=== PATIENT | female | born 1970 | race African-American/Black ===

== ENCOUNTER 2018-03-31 20:38 | Emergency (ER) | payer SELFPAY ==
[~2018-03-31] VITALS: Ht 172.7 cm; Wt 96.7 kg
[2018-03-31 21:20] VITALS: BP 146/76; PULSE 97; RESP 20; Ht 172.7 cm; Wt 96.7 kg
== END 2018-04-01 07:20 | disposition left against medical advice (07) ==
LOC: FTE 20:38
DX: Z53.21 Procedure and treatment not carried out due to patient leaving prior to being seen by health care provider (principal)

== ENCOUNTER 2018-04-11 09:57 | Emergency (ER) | payer OTHER ==
[~2018-04-11] VITALS: Ht 170.2 cm; Wt 95.3 kg
[2018-04-11 10:05] VITALS: BP 170/98; PULSE 83; RESP 18; Ht 170.2 cm; Wt 95.3 kg
[2018-04-11] MEDS ORDERED: KETOROLAC 60 MG INJ IM STA (11:57)
[2018-04-11] MEDS ORDERED: DEXAMETHASONE 10 MG/ML 1 ML INJ IM ONE (12:00)
[2018-04-11] MEDS ORDERED: NAPR-985 PO (13:44)
[2018-04-11] MEDS ORDERED: MED4DP PO (13:44)
[2018-04-11] MEDS ORDERED: CYCL10TA7 PO (13:44)
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
== END 2018-04-11 13:56 | disposition home or self-care (01) ==
LOC: FTE 09:57
DX: M54.40 Lumbago with sciatica, unspecified side (principal); F17.210 Nicotine dependence, cigarettes, uncomplicated
CPT/HCPCS: 72040; 72100; 81025; 96372; J1100; J1885; Z7502

== ENCOUNTER 2018-07-28 18:43 | Emergency (ER) | payer OTHER ==
[~2018-07-28] VITALS: Ht 175.3 cm; Wt 99.6 kg
[~2018-07-28 18:43] MED LIST: CYCL10TA7 PO; MED4DP PO; NAPR-985 PO
[2018-07-28 19:00] VITALS: Ht 175.3 cm; Wt 99.6 kg
[2018-07-28] MEDS ORDERED: ONDANSETRON 4 MG INJ IV STA (19:38)
[2018-07-28] MEDS ORDERED: KETOROLAC 30 MG INJ IV STA (19:38)
[2018-07-28] MEDS ORDERED: IBUP-1542 PO (20:57)
[2018-07-28] MEDS ORDERED: ONDA4TAB14 PO (20:57)
--- NOTE | 2018-07-28 20:59 | ERD ---
ER Documentation Chief Complaint Chief Complaint fatigue w/ AP and nausea x2 weeks HPI Patient is a 48-year-old female with asthma who presents saying "I feel nauseated". The patient said that she has been feeling nausea for the past 2 weeks. She has no vomiting no diarrhea. She feels it all day long. She has had no treatment as of yet. She denies fevers. She feels more tired than usual. Upon review of old medical records this is the patient's third visit to the ER since March 2018. She goes to a clinic in [place]. ROS All systems reviewed and are negative except as per history of present illness. Medications Home Meds Active Scripts Ondansetron (Ondansetron Odt) 4 Mg Tab.rapdis, 4 MG PO Q6H PRN for NAUSEA AND/OR VOMITING, #10 TAB Prov:LONNIE MORRIS MD 07/28/18 Ibuprofen* (Motrin*) 600 Mg Tab, 600 MG PO Q6H PRN for PAIN AND OR ELEVATED TEMP, #30 TAB Prov:LONNIE MORRIS MD 07/28/18 Cyclobenzaprine Hcl* (Cyclobenzaprine Hcl*) 10 Mg Tablet, 10 MG PO TID, #15 TAB Prov:EJ NERI PA-C 04/11/18 Naproxen* (Naprosyn*) 500 Mg Tablet, 500 MG PO BID PRN for PAIN AND/OR INFLAMMATION, #30 TAB Prov:EJ NERI PA-C 04/11/18 Methylprednisolone* (Medrol* DOSE PACK) 4 Mg/Dose-Pack Tab.ds.pk, 4 MG PO . DIRECTED, #1 PACKET Prov:EJ NERI PA-C 04/11/18 Allergies Allergies: Coded Allergies: clarithromycin (Verified Allergy, Unknown, sob, 03/31/18) PMhx/Soc History of Surgery: Yes (TUBAL LIGATION 2007) Anesthesia Reaction: No Hx Neurological Disorder: No Hx Respiratory Disorders: No Hx Cardiac Disorders: No Hx Psychiatric Problems: Yes (DEPRESSION ) Hx Miscellaneous Medical Probl: No Hx Alcohol Use: No Hx Substance Use: No Hx Tobacco Use: Yes (2 PACKS A DAY) Smoking Status: Current every day smoker FmHx Family History: diabetes Physical Exam Vitals Vital Signs Date Temp Pulse Resp B/P (MAP) Pulse Ox O2 O2 Flow FiO2 Time Delivery Rate 07/28/18 69 18 121/88 99 Room Air 21:19 (99) 07/28/18 74 18 99/75 (83) 100 Room Air 19:37 07/28/18 98.2 94 16 141/101 100 19:00 (114) Physical Exam Const: No acute distress Head: Atraumatic Eyes: Normal Conjunctiva ENT: Normal External Ears, Nose and Mouth. Neck: Full range of motion. No meningismus. Resp: Clear to auscultation bilaterally Cardio: Regular rate and rhythm, no murmurs Abd: Soft, right upper quadrant tenderness to palpation without rebound or guarding Skin: No petechiae or rashes Back: No midline or flank tenderness Ext: No cyanosis, or edema Neur: Awake and alert Psych: Normal Mood and Affect Result Diagram: 07/28/18194507/28/181945 Results 24 hrs Laboratory Tests Test 07/28/18 19:27 07/28/18 19:35 07/28/18 19:45 07/28/18 19:46 Urine Color STRAW Urine Clarity CLEAR Urine pH 6.0 Urine Specific 1.004 [place] Urine Ketones NEGATIVE mg/dL Urine Nitrite NEGATIVE mg/dL Urine Bilirubin NEGATIVE mg/dL Urine NEGATIVE mg/dL Urobilinogen Urine Leukocyte NEGATIVE Carmen/ul Esterase Urine Hemoglobin NEGATIVE mg/dL Urine Glucose NEGATIVE mg/dL Urine Total NEGATIVE mg/dl Protein POC Beta HCG, NEGATIVE Qualitative Bedside Glucose 107 mg/dL White Blood Count 6.7 10^3/ul Red Blood Count 4.72 10^6/ul Hemoglobin 13.8 g/dl Hematocrit 42.6 % Mean Corpuscular 90.3 fl Volume Mean Corpuscular 29.2 pg Hemoglobin Mean Corpuscular 32.4 g/dl Hemoglobin Concen t Red Cell 14.2 % Distribution Width Platelet Count 263 10^3/UL Mean Platelet 11.1 fl Volume Immature 0.300 % Granulocytes % Neutrophils % % Segmented 37 % Neutrophils % (Manual) Lymphocytes % % Lymphocytes % 50 % (Manual) Monocytes % % Monocytes % 8 % (Manual) Eosinophils % % Eosinophils % 3 % (Manual) Basophils % % Basophils % 2 % (Manual) Nucleated Red 0.0 /100WBC Blood Cells % Immature 0.020 10^3/ul Granulocytes # Neutrophils # 10^3/ul Lymphocytes 3.3 10^3/ul (Manual) Lymphocytes # 10^3/ul Monocytes # 10^3/ul Monocytes # 0.5 10^3/ul (Manual) Eosinophils # 10^3/ul Basophils # 10^3/ul Basophils # 0.1 10^3/ul (Manual) Nucleated Red 10^3/ul Blood Cells # Platelet Estimate NORMAL Sodium Level 140 mmol/L Potassium Level 4.2 mmol/L Chloride Level 107 mmol/L Carbon Dioxide 26 mmol/L Level Anion Gap 7 Blood Urea 7 mg/dl Nitrogen Creatinine 0.82 mg/dl Est Glomerular > 60 mL/min Filtrat Rate mL/min Glucose Level 99 mg/dl Calcium Level 9.4 mg/dl Total Bilirubin 0.3 mg/dl Direct Bilirubin 0.00 mg/dl Indirect 0.3 mg/dl Bilirubin Aspartate Amino 56 IU/L Transf (AST/SGOT) Alanine 121 IU/L Aminotransferase (ALT/SGPT) Alkaline 92 IU/L Phosphatase Total Protein 7.1 g/dl Albumin 4.1 g/dl Globulin 3.00 g/dl Albumin/Globulin 1.36 Ratio Lipase 86 U/L Current Medications Medications Dose Sig/Efrne Start Time Status Last (Trade) Ordered Route PRN Stop Time Admin Dose Reason Admin Ondansetron 4 mg ONCE STAT 07/28/18 DC 07/28/18 HCl (Zofran IV 19:38 19:49 Inj) 07/28/18 19:39 Ketorolac 30 mg ONCE STAT 07/28/18 DC 07/28/18 Tromethamine IV 19:38 19:48 (Toradol) 07/28/18 19:39 Procedures/MDM EKG read by me: Rate/Rhythm: Regular rate and rhythm at a rate of 75 Intervals: Normal Impression: No evidence of ischemia or arrhythmia Ultrasound the gallbladder shows no cholecystitis per radiology. Smoking Cessation Therapy: Pt. was lectured for greater than 3 minutes on the health risks of continued smoking and the benefits of cessation. Patient is a 48-year-old female with asthma who presents with nausea and right upper quadrant abdominal pain. Laboratory studies are basically normal. Lipase is normal. Ultrasound shows no signs of cholecystitis. At this point I doubt cholecystitis, pancreatitis, appendicitis, or bowel obstruction. I believe outpatient management is appropriate but she will need to follow-up with the primary doctor. I will give her information for the local clinics. She can return sooner for any worsening symptoms. Departure Diagnosis: Primary Impression: Abdominal pain Abdominal location: right upper quadrant Qualified Codes: R10.11 - Right upper quadrant pain Additional Impression: Fatigue Fatigue type: unspecified Qualified Codes: R53.83 - Other fatigue Condition: Fair Patient Instructions: Abdominal Pain, Weakness, Unk Cause Referrals: COMMUNITY CLINICS YOU HAVE RECEIVED A MEDICAL SCREENING EXAM AND THE RESULTS INDICATE THAT YOU DO NOT HAVE A CONDITION THAT REQUIRES URGENT TREATMENT IN THE EMERGENCY DEPARTMENT. FURTHER EVALUATION AND TREATMENT OF YOUR CONDITION CAN WAIT UNTIL YOU ARE SEEN IN YOUR DOCTORS OFFICE WITHIN THE NEXT 1-2 DAYS. IT IS YOUR RESPONSIBILITY TO MAKE AN APPOINTMENT FOR FOLOW-UP CARE. IF YOU HAVE A PRIMARY DOCTOR --you should call your primary doctor and schedule an appointment IF YOU DO NOT HAVE A PRIMARY DOCTOR YOU CAN CALL OUR PHYSICIAN REFERRAL HOTLINE AT IF YOU CAN NOT AFFORD TO SEE A PHYSICIAN YOU CAN CHOSE FROM THE FOLLOWING [facility] CLINICS [facility] [address] [facility]. [facility] [address] [facility] [facility] [address] [facility] [facility] [address] [facility]. [facility] [address] [facility]. [facility]. [address] Additional Instructions: Call your primary care doctor TOMORROW for an appointment during the next 1-2 days.See the doctor sooner or return here if your condition worsens before your appointment time. LONNIE MORRIS MD Jul 28, 2018 20:58
[2018-07-28 21:19] VITALS: BP 121/88; PULSE 69; RESP 18
== END 2018-07-28 21:20 | disposition home or self-care (01) ==
LOC: E/R 18:43
DX: R10.11 Right upper quadrant pain (principal); R53.83 Other fatigue; J45.909 Unspecified asthma, uncomplicated; R11.0 Nausea; F17.210 Nicotine dependence, cigarettes, uncomplicated
CPT/HCPCS: 36415; 76705; 80053; 81003; 81025; 82962; 83690; 85025; 93005; 96374; 96375; J1885; J2405; Z7502

== ENCOUNTER 2018-09-24 18:31 | Emergency (ER) | payer MEDICAID, OTHER ==
[~2018-09-24] VITALS: Ht 172.7 cm; Wt 99.6 kg
[~2018-09-24 18:31] MED LIST changes: +IBUP-1542 PO; +ONDA4TAB14 PO; +TRAM50TA2 PO
[2018-09-24 18:39] VITALS: BP 150/78; PULSE 113; RESP 18; Ht 172.7 cm; Wt 99.6 kg
[2018-09-24] MEDS ORDERED: IBUPROFEN 600 MG TAB PO ONE (19:30)
[2018-09-24] MEDS ORDERED: HYDROCODONE/APAP (5/325) TAB PO ONE (19:30)
--- NOTE | 2018-09-24 20:47 | ERD ---
ER Documentation Chief Complaint Chief Complaint R ankle pain & swelling started this afternoon,denies fall HPI 48-year-old female presents with right ankle pain and swelling started today. It started after she got out of the car. She denies any fall or history of trauma. She denies any previous problems with his ankle. She possibly was sitting for long time prior to trying to stand. She denies any fevers, redness, vomiting, shortness of breath or chest pain. ROS All systems reviewed and are negative except as per history of present illness. Medications Home Meds Active Scripts Tramadol HCl (Tramadol HCl) 50 Mg Tablet, 50 MG PO Q4 PRN for PAIN, #15 TAB Prov:PEBBLES NEVAREZ MD 09/24/18 Ibuprofen* (Motrin*) 600 Mg Tab, 600 MG PO Q6, #30 TAB Prov:PEBBLES NEVAREZ MD 09/24/18 Ondansetron (Ondansetron Odt) 4 Mg Tab.rapdis, 4 MG PO Q6H PRN for NAUSEA AND/OR VOMITING, #10 TAB Prov:LONNIE MORRIS MD 07/28/18 Ibuprofen* (Motrin*) 600 Mg Tab, 600 MG PO Q6H PRN for PAIN AND OR ELEVATED TEMP, #30 TAB Prov:LONNIE MORRIS MD 07/28/18 Cyclobenzaprine Hcl* (Cyclobenzaprine Hcl*) 10 Mg Tablet, 10 MG PO TID, #15 TAB Prov:EJ NERI PA-C 04/11/18 Naproxen* (Naprosyn*) 500 Mg Tablet, 500 MG PO BID PRN for PAIN AND/OR INFLAMMATION, #30 TAB Prov:EJ NERI PA-C 04/11/18 Methylprednisolone* (Medrol* DOSE PACK) 4 Mg/Dose-Pack Tab.ds.pk, 4 MG PO . DIRECTED, #1 PACKET Prov:EJ NERI PA-C 04/11/18 Allergies Allergies: Coded Allergies: clarithromycin (Verified Allergy, Unknown, sob, 03/31/18) PMhx/Soc History of Surgery: Yes (TUBAL LIGATION 2007) Anesthesia Reaction: No Hx Neurological Disorder: No Hx Respiratory Disorders: No Hx Cardiac Disorders: No Hx Psychiatric Problems: Yes (DEPRESSION ) Hx Miscellaneous Medical Probl: No Hx Alcohol Use: No Hx Substance Use: No Hx Tobacco Use: Yes (2 PACKS A DAY) Smoking Status: Current every day smoker FmHx Family History: No diabetes, No coronary disease, No other Physical Exam Vitals Vital Signs Date Temp Pulse Resp B/P (MAP) Pulse Ox O2 O2 Flow FiO2 Time Delivery Rate 09/24/18 98.6 113 18 150/78 98 18:39 (102) Physical Exam Const: No acute distress Head: Atraumatic Eyes: Normal Conjunctiva ENT: Normal External Ears, Nose and Mouth. Neck: Full range of motion. No meningismus. Resp: Clear to auscultation bilaterally Cardio: Regular rate and rhythm, no murmurs Abd: Soft, non tender, non distended. Normal bowel sounds Skin: No petechiae or rashes Back: No midline or flank tenderness Ext: No cyanosis, or edema. Tenderness and swelling of the right ankle joint. No deformities, no restricted range of motion set mildly due to pain. No deficits. Neur: Awake and alert Psych: Normal Mood and Affect Result Diagram: 09/24/18194509/24/181945 Results 24 hrs Laboratory Tests Test 09/24/18 19:46 White Blood Count 6.2 10^3/ul Red Blood Count 4.67 10^6/ul Hemoglobin 14.0 g/dl Hematocrit 42.4 % Mean Corpuscular Volume 90.8 fl Mean Corpuscular Hemoglobin 30.0 pg Mean Corpuscular Hemoglobin Concent 33.0 g/dl Red Cell Distribution Width 14.0 % Platelet Count 281 10^3/UL Mean Platelet Volume 11.8 fl Immature Granulocytes % 0.300 % Neutrophils % 59.3 % Lymphocytes % 31.1 % Monocytes % 7.5 % Eosinophils % 1.0 % Basophils % 0.8 % Nucleated Red Blood Cells % 0.0 /100WBC Immature Granulocytes # 0.020 10^3/ul Neutrophils # 3.7 10^3/ul Lymphocytes # 1.9 10^3/ul Monocytes # 0.5 10^3/ul Eosinophils # 0.1 10^3/ul Basophils # 0.1 10^3/ul Nucleated Red Blood Cells # 0.0 10^3/ul Sodium Level 139 mmol/L Potassium Level 4.4 mmol/L Chloride Level 107 mmol/L Carbon Dioxide Level 26 mmol/L Anion Gap 6 Blood Urea Nitrogen 7 mg/dl Creatinine 0.63 mg/dl Est Glomerular Filtrat Rate mL/min > 60 mL/min Glucose Level 100 mg/dl Uric Acid 5.9 mg/dl Calcium Level 9.7 mg/dl Current Medications Medications Dose Sig/Efren Start Time Status Last (Trade) Ordered Route PRN Stop Time Admin Dose Reason Admin 1 tab ONCE ONCE 09/24/18 DC 09/24/18 Acetaminophen PO 19:30 19:43 / 09/24/18 19:31 Hydrocodone Bitart (Toutle (5/325)) Ibuprofen 600 mg ONCE ONCE 09/24/18 DC 09/24/18 (Motrin) PO 19:30 19:42 09/24/18 19:31 Procedures/MDM X-ray right ankle 3V Interpreted by me: Bones: No fracture Joints: No dislocation Foreign Body: None. Impression-no acute findings right ankle x-ray CBC and basic metabolic panel normal. Uric acid normal. Patient given ibuprofen and Toutle 5 mg by mouth. Patient placed in right lower extremity walker boot and administered crutches with crutch training. Right ankle pain which is nontraumatic of uncertain etiology. She may have sustained occult trauma. She has no signs of septic arthritis, ischemia, deficits or infection. She will be treated with tramadol, ibuprofen, recommendations for rest, ice, elevation, primary care follow-up and need orthopedic evaluation for persistent pain. She is advised to return sooner for fevers, redness, new or worsening symptoms. The patient was stable with no new complaints during the ER course. Clinically, there is no current evidence to suggest meningitis, sepsis, acute abdomen, pneumonia, stroke, acute coronary syndrome, pulmonary embolism, aortic dissection or any other emergent condition appearing to require further evaluation or hospitalization. Patient counseled regarding my diagnostic impression and care plan. Prior to discharge all questions answered. Pt agrees with treatment plan and understands strict return precautions. Pt is instructed to follow up with primary care provider within 24- 48 hours. Precautionary instructions provided including instructions to return to the ER if not improving or for any worsening or changing symptoms or concerns. Disclaimer: Inadvertent spelling and grammatical errors are likely due to EHR/dictation software use and do not reflect on the overall quality of patient care. Also, please note that the electronic time recorded on this note does not necessarily reflect the actual time of the patient encounter. Departure Diagnosis: Primary Impression: Ankle pain Chronicity: acute Laterality: right Qualified Codes: M25.571 - Pain in right ankle and joints of right foot Condition: Stable Patient Instructions: Arthralgia Additional Instructions: Labs and x-rays show no acute abnormalities. May be sprain. Recheck with primary doctor and orthopedist for persistent pain. Recheck sooner for fevers, redness, new worsening symptoms. PEBBLES NEVAREZ MD Sep 24, 2018 20:47
== END 2018-09-24 21:25 | disposition home or self-care (01) ==
LOC: FTE 18:31
DX: M25.571 Pain in right ankle and joints of right foot (principal)
CPT/HCPCS: 73610; 80048; 84560; 85025; Z7502; Z7610